=== PATIENT | female | born 1970 | race Caucasian/White ===

== ENCOUNTER 2025-02-10 16:31 | Emergency (ER) | payer OTHER ==
[2025-02-10 16:52] VITALS: RESP 18; BMI 32.5
[2025-02-10 17:03] LABS: ABSOLUTE IMMATURE GRANULOCYTES 0.03 x10^3/uL (0.0-0.031); BASOPHILS # 0.05 x10^3/uL (0.01-0.08); EOSINOPHIL % 3.9 % (0.7-5.8); EOSINOPHILS # 0.38 x10^3/uL (0.04-0.36); MCHC 32.4 g/dl (32.2-35.5); MEAN CELL VOLUME 88.7 fl (79.4-94.8); MEAN PLT VOLUME 9.2 fl (9.4-12.3); MONOCYTE # 0.80 x10^3/uL (0.24-0.86); MONOCYTE % 8.2 % (4.7-12.5); RDW 13.5 % (12.3-16.6)
[2025-02-10 17:29] LABS: ALK PHOS 95.0 U/L (45-117); CO2 29.0 mmol/L (21-32); CREATININE 0.8 mg/dl (0.6-1.3); GLUCOSE,RANDOM 96.0 mg/dl (74-106); SGOT/AST 19.0 U/L (15-37); SGPT/ALT 14.0 U/L (7-52); TOT PROT 6.7 g/dl (6.4-8.2)
[2025-02-10 17:40] VITALS: BP 130/74; PULSE 71; TEMP 98.5
[2025-02-10 19:11] LABS: HIV INTERPRETATION NEGATIVE (NEGATIVE)
[2025-02-10 19:12] LABS: HCV DIAGNOSTIC IN-HOUSE W/RFLX NON-REACTIVE (NONREACTIVE)
== END 2025-02-10 17:45 | disposition home or self-care (01) ==
LOC: FER 16:31
DX: R07.89 Other chest pain (principal)
CPT/HCPCS: 36415; 71045-TC-FY; 80053; 84484; 85025; 86803; 87389; 93005; 99285-25